=== PATIENT | male | born 1945 | race Native Hawaiian/Other Pacific Islander ===

== ENCOUNTER 2016-02-27 10:08 | Inpatient (IN) | payer OTHER ==
[~2016-02-27 10:08] MED LIST: METO50TA63 PO; RANITIDINE 150150 MG PO; TRIA0.1C19 TOP
== END 2016-03-18 08:00 | disposition still patient (30) ==
LOC: PAVC 10:08
PROVIDERS: ADMIT Internal Medicine
DX: Z51.89 Encounter for other specified aftercare (principal)

== ENCOUNTER 2016-03-18 09:00 | Inpatient (IN) | payer OTHER | END 2016-04-18 12:33 | disposition still patient (30) | LOC: PAVC 09:00 | PROVIDERS: ADMIT Internal Medicine | DX: Z51.89 Encounter for other specified aftercare (principal) ==

== ENCOUNTER 2016-04-10 16:09 | Outpatient (CLI) | payer OTHER ==
[2016-04-10 16:32] LABS: PLATELET COUNT 226 K/uL (142-355)
[2016-04-10 17:09] LABS: POTASSIUM 4.5 mmol/L (3.6-5.2); SODIUM 141 mmol/L (136-145)
== END 2016-04-10 23:40 | disposition home or self-care (01) ==
LOC: LAB 16:09
PROVIDERS: Internal Medicine
DX: I10 Essential (primary) hypertension (principal); G83.89 Other specified paralytic syndromes
CPT/HCPCS: 80053; 85027; 86039; 86430; 86592

== ENCOUNTER 2016-04-12 10:12 | Outpatient (CLI) | payer OTHER | END 2016-04-12 19:07 | disposition home or self-care (01) | LOC: LAB 10:12 | DX: L30.8 Other specified dermatitis (principal); D53.8 Other specified nutritional anemias | CPT/HCPCS: 87045; 87328; 87329; 87798; 87899 ==

== ENCOUNTER 2016-04-18 12:49 | Inpatient (IN) | payer OTHER | END 2016-05-16 13:20 | disposition still patient (30) | LOC: PAVC 12:49 | PROVIDERS: ADMIT Internal Medicine | DX: Z51.89 Encounter for other specified aftercare (principal) ==

== ENCOUNTER 2016-04-23 05:16 | Outpatient (CLI) | payer OTHER ==
[2016-04-23 06:20] LABS: PLATELET COUNT 215 K/uL (142-355)
== END 2016-04-23 20:03 | disposition home or self-care (01) ==
LOC: LAB 05:16
PROVIDERS: Internal Medicine
DX: I10 Essential (primary) hypertension (principal); E03.8 Other specified hypothyroidism; L30.8 Other specified dermatitis
CPT/HCPCS: 36415; 84439; 84443; 85027

== ENCOUNTER 2016-04-30 16:07 | Outpatient (CLI) | payer OTHER ==
[2016-04-30 16:23] LABS: PLATELET COUNT 209 K/uL (142-355)
[2016-04-30 16:36] LABS: SODIUM 135 mmol/L (136-145)
== END 2016-04-30 23:07 | disposition home or self-care (01) ==
LOC: LAB 16:07
PROVIDERS: Internal Medicine
DX: L30.8 Other specified dermatitis (principal); D72.828 Other elevated white blood cell count
CPT/HCPCS: 80053; 85027

== ENCOUNTER 2016-05-07 04:34 | Outpatient (CLI) | payer OTHER ==
[2016-05-07 06:03] LABS: PLATELET COUNT 212 K/uL (142-355)
== END 2016-05-07 20:09 | disposition home or self-care (01) ==
LOC: LAB 04:34
PROVIDERS: Internal Medicine
DX: I10 Essential (primary) hypertension (principal); E03.8 Other specified hypothyroidism
CPT/HCPCS: 36415; 85027

== ENCOUNTER 2016-05-16 13:32 | Inpatient (IN) | payer OTHER | END 2016-06-16 08:13 | disposition still patient (30) | LOC: PAVC 13:32 | PROVIDERS: ADMIT Internal Medicine | DX: Z51.89 Encounter for other specified aftercare (principal) ==

== ENCOUNTER 2016-05-21 18:11 | Outpatient (CLI) | payer OTHER | END 2016-05-21 19:40 | disposition home or self-care (01) | LOC: LAB 18:11 | DX: D64.89 Other specified anemias (principal) | CPT/HCPCS: 82272; 87328; 87329 ==

== ENCOUNTER 2016-05-22 05:49 | Outpatient (CLI) | payer OTHER | END 2016-05-22 19:38 | disposition home or self-care (01) | LOC: LAB 05:49 | DX: D64.89 Other specified anemias (principal) | CPT/HCPCS: 82272 ==

== ENCOUNTER 2016-05-25 15:58 | Outpatient (CLI) | payer OTHER | END 2016-05-25 19:17 | disposition home or self-care (01) | LOC: LAB 15:58 | DX: R00.1 Bradycardia, unspecified (principal) | CPT/HCPCS: 84439; 84443; 93005 ==

== ENCOUNTER 2016-05-30 15:09 | Outpatient (CLI) | payer OTHER | END 2016-05-30 19:17 | disposition home or self-care (01) | LOC: RAD 15:09 | DX: R22.31 Localized swelling, mass and lump, right upper limb (principal) ==

== ENCOUNTER 2016-06-12 05:28 | Outpatient (CLI) | payer OTHER ==
[2016-06-12 06:08] LABS: PLATELET COUNT 230 K/uL (142-355)
[2016-06-12 06:54] LABS: POTASSIUM 4.1 mmol/L (3.6-5.2); SODIUM 137 mmol/L (136-145)
== END 2016-06-12 19:12 | disposition home or self-care (01) ==
LOC: LAB 05:28
PROVIDERS: Internal Medicine
DX: I10 Essential (primary) hypertension (principal); E03.8 Other specified hypothyroidism; D64.89 Other specified anemias; L30.8 Other specified dermatitis; N39.0 Urinary tract infection, site not specified; B95.61 Methicillin susceptible Staphylococcus aureus infection as the cause of diseases classified elsewhere; R79.0 Abnormal level of blood mineral
CPT/HCPCS: 36415; 80053; 81000; 82607; 82728; 82746; 83540; 83550; 85027; 87077; 87086; 87088; 87185; 87186

== ENCOUNTER 2016-06-12 10:46 | Outpatient (CLI) | payer OTHER | END 2016-06-12 19:15 | disposition home or self-care (01) | LOC: RAD 10:46 | DX: D72.1 Eosinophilia (principal) ==

== ENCOUNTER 2016-06-13 06:17 | Outpatient (CLI) | payer OTHER | END 2016-06-13 19:10 | disposition home or self-care (01) | LOC: LAB 06:17 | DX: D64.89 Other specified anemias (principal) | CPT/HCPCS: 82272 ==

== ENCOUNTER 2016-06-15 18:40 | Outpatient (CLI) | payer OTHER | END 2016-06-15 20:00 | disposition home or self-care (01) | LOC: LAB 18:40 | DX: D64.89 Other specified anemias (principal) | CPT/HCPCS: 82525; 83010; 83615; 85044 ==

== ENCOUNTER 2016-06-16 08:34 | Inpatient (IN) | payer OTHER | END 2016-07-16 10:56 | disposition still patient (30) | LOC: PAVC 08:34 | PROVIDERS: ADMIT Internal Medicine | DX: Z51.89 Encounter for other specified aftercare (principal) ==

== ENCOUNTER 2016-07-15 09:06 | Outpatient (CLI) | payer OTHER | END 2016-07-15 19:45 | disposition home or self-care (01) | LOC: LAB 09:06 | DX: Z16.24 Resistance to multiple antibiotics (principal) | CPT/HCPCS: 87081 ==

== ENCOUNTER 2016-07-16 11:19 | Inpatient (IN) | payer OTHER | END 2016-08-16 10:45 | disposition still patient (30) | LOC: PAVC 11:19 | PROVIDERS: ADMIT Internal Medicine | DX: Z51.89 Encounter for other specified aftercare (principal) ==

== ENCOUNTER 2016-07-27 04:53 | Outpatient (CLI) | payer OTHER ==
[2016-07-27 06:17] LABS: POTASSIUM 4.3 mmol/L (3.6-5.2); SODIUM 140 mmol/L (136-145)
[2016-07-27 06:18] LABS: PLATELET COUNT 228 K/uL (142-355)
== END 2016-07-27 19:28 | disposition home or self-care (01) ==
LOC: LAB 04:53
PROVIDERS: Internal Medicine
DX: I10 Essential (primary) hypertension (principal); D64.89 Other specified anemias
CPT/HCPCS: 80053; 85027

== ENCOUNTER 2016-08-16 10:56 | Inpatient (IN) | payer OTHER | END 2016-09-15 16:08 | disposition still patient (30) | LOC: PAVC 10:56 | PROVIDERS: ADMIT Internal Medicine | DX: Z51.89 Encounter for other specified aftercare (principal) ==

== ENCOUNTER 2016-08-22 04:39 | Outpatient (CLI) | payer OTHER ==
[2016-08-22 05:27] LABS: PLATELET COUNT 226 K/uL (142-355)
[2016-08-22 05:59] LABS: POTASSIUM 4.4 mmol/L (3.6-5.2); SODIUM 141 mmol/L (136-145)
== END 2016-08-22 05:45 | disposition home or self-care (01) ==
LOC: LAB 04:39
PROVIDERS: Internal Medicine
DX: I10 Essential (primary) hypertension (principal); L30.8 Other specified dermatitis; E03.8 Other specified hypothyroidism; D64.89 Other specified anemias
CPT/HCPCS: 36415; 80053; 84443; 85027

== ENCOUNTER 2016-09-06 19:38 | Outpatient (CLI) | payer OTHER | END 2016-09-06 20:06 | disposition home or self-care (01) | LOC: INF 19:38 | DX: H05.223 Edema of bilateral orbit (principal) | CPT/HCPCS: 96365 ==

== ENCOUNTER 2016-09-15 16:27 | Inpatient (IN) | payer OTHER | END 2016-10-16 12:57 | disposition still patient (30) | LOC: PAVC 16:27 | PROVIDERS: ADMIT Internal Medicine | DX: Z51.89 Encounter for other specified aftercare (principal) ==

== ENCOUNTER 2016-09-26 02:57 | Outpatient (CLI) | payer OTHER ==
[2016-09-26 03:17] LABS: PLATELET COUNT 244 K/uL (142-355)
[2016-09-26 03:47] LABS: POTASSIUM 4.4 mmol/L (3.6-5.2)
== END 2016-09-26 04:00 | disposition home or self-care (01) ==
LOC: LAB 02:57
PROVIDERS: Internal Medicine
DX: K21.9 Gastro-esophageal reflux disease without esophagitis (principal); D64.89 Other specified anemias; I10 Essential (primary) hypertension; M62.81 Muscle weakness (generalized); N39.0 Urinary tract infection, site not specified; E78.00 Pure hypercholesterolemia, unspecified; L20.89 Other atopic dermatitis
CPT/HCPCS: 80053; 81000; 82465; 83735; 84478; 84550; 85027; 87086; 87088

== ENCOUNTER 2016-10-06 15:54 | Outpatient (CLI) | payer OTHER | END 2016-10-06 16:55 | disposition home or self-care (01) | LOC: LAB 15:54 | DX: L02.426 Furuncle of left lower limb (principal) | CPT/HCPCS: 87070; 87205 ==

== ENCOUNTER 2016-10-10 05:02 | Outpatient (CLI) | payer OTHER ==
[2016-10-10 05:53] LABS: POTASSIUM 4.2 mmol/L (3.6-5.2); SODIUM 136 mmol/L (136-145)
[2016-10-10 09:26] LABS: PLATELET COUNT 227 K/uL (142-355)
== END 2016-10-10 06:05 | disposition home or self-care (01) ==
LOC: LAB 05:02
PROVIDERS: Internal Medicine
DX: E03.8 Other specified hypothyroidism (principal); R20.8 Other disturbances of skin sensation
CPT/HCPCS: 36415; 80053; 82465; 83735; 84478; 84550; 85027

== ENCOUNTER 2016-10-13 04:48 | Outpatient (CLI) | payer OTHER | END 2016-10-13 19:07 | disposition home or self-care (01) | LOC: LAB 04:48 | DX: N39.0 Urinary tract infection, site not specified (principal) | CPT/HCPCS: 81000 ==

== ENCOUNTER 2016-10-16 14:00 | Inpatient (IN) | payer OTHER | END 2016-11-16 09:45 | disposition still patient (30) | LOC: PAVC 14:00 | PROVIDERS: ADMIT Internal Medicine | DX: Z51.89 Encounter for other specified aftercare (principal) ==

== ENCOUNTER 2016-10-25 04:38 | Outpatient (CLI) | payer OTHER ==
[2016-10-25 06:45] LABS: PLATELET COUNT 203 K/uL (142-355)
[2016-10-25 06:46] LABS: POTASSIUM 4.2 mmol/L (3.6-5.2); SODIUM 141 mmol/L (136-145)
== END 2016-10-25 05:40 | disposition home or self-care (01) ==
LOC: LAB 04:38
PROVIDERS: Internal Medicine
DX: I10 Essential (primary) hypertension (principal); L30.8 Other specified dermatitis; E03.8 Other specified hypothyroidism; D64.89 Other specified anemias; N39.0 Urinary tract infection, site not specified
CPT/HCPCS: 36415; 80053; 81000; 82465; 83735; 84478; 84550; 85027; 87077; 87086; 87088; 87185; 87186

== ENCOUNTER 2016-11-09 03:22 | Outpatient (CLI) | payer OTHER ==
[2016-11-09 04:01] LABS: PLATELET COUNT 226 K/uL (142-355)
[2016-11-09 04:36] LABS: POTASSIUM 4.6 mmol/L (3.6-5.2)
== END 2016-11-09 19:03 | disposition home or self-care (01) ==
LOC: LAB 03:22
PROVIDERS: Internal Medicine
DX: I10 Essential (primary) hypertension (principal); L30.8 Other specified dermatitis; E03.8 Other specified hypothyroidism; D64.89 Other specified anemias; N39.0 Urinary tract infection, site not specified
CPT/HCPCS: 80053; 81000; 82465; 83735; 84478; 84550; 85027

== ENCOUNTER 2016-11-16 10:23 | Inpatient (IN) | payer OTHER | END 2016-12-16 09:36 | disposition still patient (30) | LOC: PAVC 10:23 | PROVIDERS: ADMIT Internal Medicine | DX: Z51.89 Encounter for other specified aftercare (principal) ==

== ENCOUNTER 2016-12-12 02:20 | Outpatient (CLI) | payer OTHER ==
[2016-12-12 03:05] LABS: PLATELET COUNT 191 K/uL (142-355)
[2016-12-12 03:11] LABS: SODIUM 140 mmol/L (136-145)
== END 2016-12-12 19:03 | disposition home or self-care (01) ==
LOC: LAB 02:20
PROVIDERS: Internal Medicine
DX: I10 Essential (primary) hypertension (principal); L30.8 Other specified dermatitis; E03.8 Other specified hypothyroidism; D64.89 Other specified anemias; N39.0 Urinary tract infection, site not specified
CPT/HCPCS: 36415; 80053; 81000; 82465; 83735; 84478; 84550; 85027; 87077; 87086; 87088; 87185; 87186

== ENCOUNTER 2016-12-16 09:53 | Inpatient (IN) | payer OTHER | END 2017-01-16 14:19 | disposition still patient (30) | LOC: PAVC 09:53 | PROVIDERS: ADMIT Internal Medicine ==

== ENCOUNTER 2017-01-11 04:00 | Outpatient (CLI) | payer OTHER ==
[2017-01-11 04:37] LABS: PLATELET COUNT 184 K/uL (142-355)
== END 2017-01-11 21:32 | disposition home or self-care (01) ==
LOC: LAB 04:00
PROVIDERS: Internal Medicine
DX: D64.89 Other specified anemias (principal); L30.8 Other specified dermatitis; E03.8 Other specified hypothyroidism; N39.0 Urinary tract infection, site not specified
CPT/HCPCS: 81000; 82465; 83735; 84478; 84550; 85027; 87077; 87086; 87088; 87185; 87186

== ENCOUNTER 2017-01-16 14:51 | Inpatient (IN) | payer OTHER | END 2017-02-15 10:29 | disposition still patient (30) | LOC: PAVC 14:51 | PROVIDERS: ADMIT Internal Medicine ==

== ENCOUNTER 2017-02-15 10:49 | Inpatient (IN) | payer OTHER | END 2017-03-18 10:56 | disposition still patient (30) | LOC: PAVC 10:49 | PROVIDERS: ADMIT Internal Medicine ==

== ENCOUNTER 2017-02-18 05:13 | Outpatient (CLI) | payer OTHER ==
[2017-02-18 06:41] LABS: PLATELET COUNT 185 K/uL (142-355)
== END 2017-02-18 06:15 | disposition home or self-care (01) ==
LOC: LAB 05:13
PROVIDERS: Internal Medicine
DX: D64.89 Other specified anemias (principal); L30.8 Other specified dermatitis; E03.8 Other specified hypothyroidism; N39.0 Urinary tract infection, site not specified
CPT/HCPCS: 36415; 81000; 82465; 83735; 84443; 84478; 84550; 85027; 87077; 87086; 87088; 87185; 87186

== ENCOUNTER 2017-03-18 11:41 | Inpatient (IN) | payer OTHER | END 2017-04-18 11:12 | disposition still patient (30) | LOC: PAVC 11:41 | PROVIDERS: ADMIT Internal Medicine ==

== ENCOUNTER 2017-03-28 04:52 | Outpatient (CLI) | payer OTHER | END 2017-03-28 21:57 | disposition home or self-care (01) | LOC: LAB 04:52 | DX: D51.8 Other vitamin B12 deficiency anemias (principal) | CPT/HCPCS: 82607 ==

== ENCOUNTER 2017-04-18 12:24 | Inpatient (IN) | payer OTHER | END 2017-05-16 10:37 | disposition still patient (30) | LOC: PAVC 12:24 | PROVIDERS: ADMIT Internal Medicine ==

== ENCOUNTER 2017-05-16 10:50 | Inpatient (IN) | payer OTHER | END 2017-06-16 08:00 | disposition still patient (30) | LOC: PAVC 10:50 | PROVIDERS: ADMIT Internal Medicine ==

== ENCOUNTER 2017-06-16 09:00 | Inpatient (IN) | payer OTHER | END 2017-07-16 10:27 | disposition still patient (30) | LOC: PAVC 09:00 | PROVIDERS: ADMIT Internal Medicine ==

== ENCOUNTER 2017-07-16 10:48 | Inpatient (IN) | payer OTHER | END 2017-08-16 10:23 | disposition still patient (30) | LOC: PAVC 10:48 | PROVIDERS: ADMIT Internal Medicine ==

== ENCOUNTER 2017-08-16 10:44 | Inpatient (IN) | payer OTHER | END 2017-09-15 15:07 | disposition still patient (30) | LOC: PAVC 10:44 → PAVB 09-13 13:34 → PAVC 09-13 13:35 | PROVIDERS: ADMIT Internal Medicine ==

== ENCOUNTER 2017-08-19 05:04 | Outpatient (CLI) | payer OTHER ==
[2017-08-19 06:25] LABS: PLATELET COUNT 173 K/uL (142-355)
[2017-08-19 07:15] LABS: POTASSIUM 3.7 mmol/L (3.6-5.2)
== END 2017-08-19 21:58 | disposition home or self-care (01) ==
LOC: LAB 05:04
PROVIDERS: Internal Medicine
DX: D64.89 Other specified anemias (principal); R94.6 Abnormal results of thyroid function studies
CPT/HCPCS: 80053; 84443; 85027

== ENCOUNTER 2017-09-15 15:09 | Inpatient (IN) | payer OTHER | END 2017-10-16 08:00 | disposition still patient (30) | LOC: PAVC 15:09 | PROVIDERS: ADMIT Internal Medicine ==

== ENCOUNTER 2017-09-20 05:15 | Outpatient (CLI) | payer OTHER | END 2017-09-20 19:02 | disposition home or self-care (01) | LOC: LAB 05:15 | DX: D51.8 Other vitamin B12 deficiency anemias (principal) | CPT/HCPCS: 82607 ==

== ENCOUNTER 2017-10-16 09:00 | Inpatient (IN) | payer OTHER | END 2017-11-16 11:14 | disposition still patient (30) | LOC: PAVC 09:00 | PROVIDERS: ADMIT Internal Medicine ==

== ENCOUNTER 2017-11-16 11:22 | Inpatient (IN) | payer OTHER | END 2017-12-16 15:07 | disposition still patient (30) | LOC: PAVC 11:22 | PROVIDERS: ADMIT Internal Medicine ==

== ENCOUNTER 2017-12-02 02:47 | Outpatient (CLI) | payer OTHER ==
[2017-12-02 03:01] LABS: PLATELET COUNT 259 K/uL (142-355)
[2017-12-02 03:24] LABS: POTASSIUM 3.9 mmol/L (3.6-5.2)
== END 2017-12-02 19:39 | disposition home or self-care (01) ==
LOC: RAD 02:47 → LAB 02:47
PROVIDERS: Internal Medicine
DX: R10.9 Unspecified abdominal pain (principal); R11.10 Vomiting, unspecified; R11.2 Nausea with vomiting, unspecified
CPT/HCPCS: 36415; 80053; 81000; 85027

== ENCOUNTER 2017-12-09 15:04 | Outpatient (CLI) | payer OTHER | END 2017-12-09 23:34 | disposition home or self-care (01) | LOC: RAD 15:04 | DX: R10.84 Generalized abdominal pain (principal) ==

== ENCOUNTER 2017-12-16 16:09 | Inpatient (IN) | payer OTHER ==
[2018-01-06] MEDS ORDERED: AZO CRANBERY UR1 CAP PO (07:21)
[2018-01-06] MEDS ORDERED: ALLEGRA ALRG180 M1 PO (07:21)
[2018-01-06] MEDS ORDERED: CLON0.1T16 PO (07:22)
[2018-01-06] MEDS ORDERED: CERAVE TD (07:23)
[2018-01-06] MEDS ORDERED: CYAN10009 IM (07:24)
[2018-01-06] MEDS ORDERED: [UNRECOGNIZED DRUG - CODE] EX (07:25)
[2018-01-06] MEDS ORDERED: KETO2SHA7 TOP (07:26)
[2018-01-06] MEDS ORDERED: HYDR200T3 PO (07:29)
[2018-01-06] MEDS ORDERED: PREDNISOLONE SO10 MG PO (07:30)
[2018-01-06] MEDS ORDERED: LEVO0.0723 PO (07:30)
[2018-01-06] MEDS ORDERED: TRIA0.1C19 TOP (07:31)
[2018-01-06] MEDS ORDERED: BENADRYL ALLERG25 MG PO (07:33)
[2018-01-06] MEDS ORDERED: TYLENOL325 MG PO (07:33)
[2018-01-06] MEDS ORDERED: HYDR25CA25 PO (07:34)
== END 2018-01-16 10:42 | disposition still patient (30) ==
LOC: PAVC 16:09
PROVIDERS: ADMIT Internal Medicine
DX: N10 Acute pyelonephritis (principal); M19.90 Unspecified osteoarthritis, unspecified site; I10 Essential (primary) hypertension; D64.9 Anemia, unspecified; Z79.52 Long term (current) use of systemic steroids; E03.9 Hypothyroidism, unspecified; H90.5 Unspecified sensorineural hearing loss; L30.9 Dermatitis, unspecified

== ENCOUNTER 2018-01-06 07:05 | Inpatient (IN) | payer OTHER ==
[~2018-01-06] VITALS: Ht 167.6 cm; Wt 80.0 kg
[2018-01-06] VITALS (7 sets, daily range): BP systolic 90–129; BP diastolic 60–83; TEMP 97.7–103.2; Ht 167.6 cm; Wt 80.0 kg
[2018-01-06] MEDS ORDERED: AZO CRANBERY UR1 CAP PO (07:21)
[2018-01-06] MEDS ORDERED: ALLEGRA ALRG180 M1 PO (07:21)
[2018-01-06] MEDS ORDERED: CLON0.1T16 PO (07:22)
[2018-01-06] MEDS ORDERED: CERAVE TD (07:23)
[2018-01-06] MEDS ORDERED: CYAN10009 IM (07:24)
[2018-01-06] MEDS ORDERED: [UNRECOGNIZED DRUG - CODE] EX (07:25)
[2018-01-06] MEDS ORDERED: KETO2SHA7 TOP (07:26)
[2018-01-06] MEDS ORDERED: HYDR200T3 PO (07:29)
[2018-01-06] MEDS ORDERED: LEVO0.0723 PO (07:30)
[2018-01-06] MEDS ORDERED: PREDNISOLONE SO10 MG PO (07:30)
[2018-01-06] MEDS ORDERED: TRIA0.1C19 TOP (07:31)
[2018-01-06] MEDS ORDERED: TYLENOL325 MG PO (07:33)
[2018-01-06] MEDS ORDERED: BENADRYL ALLERG25 MG PO (07:33)
[2018-01-06] MEDS ORDERED: HYDR25CA25 PO (07:34)
[2018-01-06 07:46] LABS: PLATELET COUNT 209 K/uL (142-355)
[2018-01-06 07:52] LABS: POTASSIUM 3.6 mmol/L (3.6-5.2); SODIUM 145 mmol/L (136-145)
[2018-01-07] VITALS: BP 119/78; TEMP 98.4
[2018-01-07 04:20] VITALS: BP 130/79; TEMP 98.5; TEMP 98.51
[2018-01-07 05:36] LABS: PLATELET COUNT 146 K/uL (142-355)
[2018-01-07 05:49] LABS: POTASSIUM 3.7 mmol/L (3.6-5.2)
[2018-01-07 08:02] VITALS: BP 136/87; TEMP 98.7
[2018-01-07 12:07] VITALS: BP 131/79; TEMP 98.8
[2018-01-07 16:07] VITALS: BP 141/76; TEMP 98.8
[2018-01-07 20:05] VITALS: BP 160/92; TEMP 98.7
[2018-01-08] VITALS (7 sets, daily range): BP systolic 145–182; BP diastolic 80–97; TEMP 97.7–98.9
[2018-01-09 04:00] VITALS: BP 147/84; TEMP 98.3
[2018-01-09 07:05] LABS: POTASSIUM 3.5 mmol/L (3.6-5.2)
[2018-01-09 07:15] LABS: PLATELET COUNT 162 K/uL (142-355)
[2018-01-09 08:00] VITALS: BP 184/95; TEMP 98.1
[2018-01-09 12:00] VITALS: BP 160/90; TEMP 94
[2018-01-09 16:03] VITALS: BP 171/90; TEMP 98
[2018-01-09 20:00] VITALS: BP 142/75; TEMP 98.5
[2018-01-10] VITALS: BP 150/88; TEMP 98.3
[2018-01-10 04:00] VITALS: BP 152/96; TEMP 98
[2018-01-10 08:00] VITALS: BP 178/98; TEMP 97.5
== END 2018-01-10 11:00 | disposition home or self-care (01) | DRG 872 ==
LOC: ED 07:05 → MED/SURG 11:35
PROVIDERS: Family Medicine; ADMIT Internal Medicine
DX: A41.89 Other specified sepsis (principal); N39.0 Urinary tract infection, site not specified; N17.8 Other acute kidney failure; N10 Acute pyelonephritis; E86.9 Volume depletion, unspecified; I10 Essential (primary) hypertension; L30.8 Other specified dermatitis; E03.8 Other specified hypothyroidism; D64.89 Other specified anemias; I95.89 Other hypotension; F70 Mild intellectual disabilities
CPT/HCPCS: 36415; 80048; 80053; 81000; 83605; 84484; 85027; 87040; 87077; 87086; 87088; 87186; 87205; 93005; 96365; 96374; 99284; J0295; J1335; J2185; J2405

== ENCOUNTER 2018-01-16 10:44 | Inpatient (IN) | payer OTHER ==
[~2018-01-16 10:44] MED LIST changes: +ALLEGRA ALRG180 M1 PO; +AZO CRANBERY UR1 CAP PO; +BENADRYL ALLERG25 MG PO; +CERAVE TD; +CLON0.1T16 PO; +CYAN10009 IM; +HYDR200T3 PO; +HYDR25CA25 PO; +KETO2SHA7 TOP; +LEVO0.0723 PO; +PREDNISOLONE SO10 MG PO; +TYLENOL325 MG PO; +[UNRECOGNIZED DRUG - CODE] EX
== END 2018-02-15 07:08 | disposition still patient (30) ==
LOC: PAVC 10:44
PROVIDERS: ADMIT Internal Medicine

== ENCOUNTER 2018-02-15 07:17 | Inpatient (IN) | payer OTHER | END 2018-03-18 09:39 | disposition still patient (30) | LOC: PAVC 07:17 | PROVIDERS: ADMIT Internal Medicine ==

== ENCOUNTER 2018-02-17 05:20 | Outpatient (CLI) | payer OTHER ==
[2018-02-17 06:22] LABS: PLATELET COUNT 203 K/uL (142-355)
[2018-02-17 06:48] LABS: POTASSIUM 4.4 mmol/L (3.6-5.2)
== END 2018-02-17 20:23 | disposition home or self-care (01) ==
LOC: LAB 05:20
PROVIDERS: Internal Medicine
DX: L30.9 Dermatitis, unspecified (principal); I10 Essential (primary) hypertension; E05.90 Thyrotoxicosis, unspecified without thyrotoxic crisis or storm
CPT/HCPCS: 80053; 84443; 85027

== ENCOUNTER 2018-03-18 10:10 | Inpatient (IN) | payer OTHER | END 2018-04-18 08:41 | disposition still patient (30) | LOC: PAVC 10:10 | PROVIDERS: ADMIT Internal Medicine ==

== ENCOUNTER 2018-04-18 08:49 | Inpatient (IN) | payer OTHER | END 2018-05-16 13:53 | disposition still patient (30) | LOC: PAVC 08:49 | PROVIDERS: ADMIT Internal Medicine ==

== ENCOUNTER 2018-05-16 13:57 | Inpatient (IN) | payer OTHER | END 2018-06-16 13:05 | disposition still patient (30) | LOC: PAVC 13:57 | PROVIDERS: ADMIT Internal Medicine ==

== ENCOUNTER 2018-06-08 08:04 | Outpatient (CLI) | payer OTHER | END 2018-06-08 19:17 | disposition home or self-care (01) | LOC: LAB 08:04 | DX: N39.0 Urinary tract infection, site not specified (principal) | CPT/HCPCS: 81000; 87077; 87086; 87088; 87186 ==

== ENCOUNTER 2018-06-16 13:07 | Inpatient (IN) | payer OTHER ==
[2018-06-26] MEDS ORDERED: ZOFRAN8 MG PO ×2 (05:12→05:16)
[2018-06-26] MEDS ORDERED: PROTEINE1 PO ×2 (05:13→05:15)
== END 2018-07-16 15:54 | disposition still patient (30) ==
LOC: PAVC 13:07
PROVIDERS: ADMIT Internal Medicine

== ENCOUNTER 2018-06-24 09:41 | Outpatient (CLI) | payer OTHER | END 2018-06-24 23:19 | disposition home or self-care (01) | LOC: LAB 09:41 | DX: N39.0 Urinary tract infection, site not specified (principal) | CPT/HCPCS: 81000; 87088 ==

== ENCOUNTER 2018-06-25 19:39 | Inpatient (IN) | payer OTHER ==
[~2018-06-25] VITALS: Ht 170.2 cm; Wt 67.3 kg
[2018-06-25 19:51] VITALS: BP 134/98; TEMP 97.9
[2018-06-25 20:35] LABS: PLATELET COUNT 141 K/uL (142-355)
[2018-06-25 20:45] VITALS: BP 161/105
[2018-06-25 21:18] LABS: POTASSIUM 5.5 mmol/L (3.6-5.2)
[2018-06-25 22:01] VITALS: BP 146/81
[2018-06-25 23:01] VITALS: BP 116/86
[2018-06-25 23:52] VITALS: BP 120/74
[2018-06-26 01:13] VITALS: BP 142/96; TEMP 98.9; Ht 170.2 cm; Wt 67.3 kg
[2018-06-26 04:00] VITALS: BP 150/91; TEMP 99.2
[2018-06-26] MEDS ORDERED: ZOFRAN8 MG PO ×2 (05:12→05:16)
[2018-06-26] MEDS ORDERED: PROTEINE1 PO ×2 (05:13→05:15)
[2018-06-26 05:38] LABS: PLATELET COUNT 128 K/uL (142-355)
[2018-06-26 08:00] VITALS: BP 127/80; TEMP 98.5
[2018-06-26 12:00] VITALS: BP 132/84; TEMP 98.7
[2018-06-26 16:00] VITALS: BP 133/88; TEMP 98.5
== END 2018-06-26 14:40 | disposition short-term general hospital (02) | DRG 694 ==
LOC: ED 19:39 → MED/SURG 23:40
PROVIDERS: Internal Medicine; ADMIT Emergency Medicine
DX: N13.30 Unspecified hydronephrosis (principal); C79.51 Secondary malignant neoplasm of bone; C61 Malignant neoplasm of prostate; N17.8 Other acute kidney failure; R11.2 Nausea with vomiting, unspecified; I10 Essential (primary) hypertension; E03.8 Other specified hypothyroidism; D64.89 Other specified anemias; F70 Mild intellectual disabilities
CPT/HCPCS: 36415; 80053; 82271; 83986; 85027; 96365; 96374; 96375; 99284; J2405; J2550; J3490

== ENCOUNTER 2018-07-16 15:59 | Inpatient (IN) | payer OTHER ==
[~2018-07-16 15:59] MED LIST changes: +PROTEINE1 PO; +ZOFRAN8 MG PO
== END 2018-07-21 18:00 | disposition expired ==
LOC: PAVC 15:59
PROVIDERS: ADMIT Internal Medicine